=== PATIENT | female | born 1965 | race Caucasian/White ===

== ENCOUNTER 2016-06-01 08:33 | Emergency (ER) | payer OTHER ==
[~2016-06-01] VITALS: Ht 162.6 cm; Wt 145.4 kg
[2016-06-01 08:44] VITALS: BP 144/91; PULSE 83; RESP 11; O2SAT 96
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
--- NOTE | 2016-06-01 09:05 | DRSVH ---
PROCEDURE: X-RAY CHEST ONE VIEW, PORTABLE ([id number]) INDICATIONS: CHEST PAIN TECHNIQUE: One view of the chest was acquired. COMPARISON: None. FINDINGS: Surgical changes and devices: None. Lungs and pleura: No pleural effusions or pneumothorax. Lungs are clear. Mediastinum: Mediastinal contours appear normal. Heart size is normal. Bones and chest wall: No suspicious bony lesions. Overlying soft tissues appear unremarkable. IMPRESSION: No acute cardiopulmonary disease. Dictated by: James Brooks [facility] Interpreted: Rylie Hilton MD on 06/01/2016 at 9:04 Transcribed by: YOSSI on 06/01/2016 at 9:05 Approved by: Rylie Hilton MD, PhD on 06/01/2016 at 16:50
[2016-06-01] MEDS ORDERED: Nitroglycerin 2% 1 Gm Ointment TOPICAL SCH (09:30)
[2016-06-01 09:31] LABS: BASOPHILS % (AUTO) 0.3 % (0-3); EOSINOPHILS % (AUTO) 1.2 % (0-5); MONOCYTES % (AUTO) 8.3 % (4-12); Mean Corpuscular Hemoglobin 31.4 pg (27.0-35.0); NEUTROPHILS % (AUTO) 67.5 % (40-74); Platelet Count 238 bil/L (150-400)
[2016-06-01 10:09] LABS: TROPONIN T < 0.010 ug/L (0.0-0.011)
[2016-06-01 10:13] LABS: Magnesium 2.3 mg/dL (1.6-2.6)
[2016-06-01] MEDS ORDERED: CARB15DR74 OP (13:34)
[2016-06-01] MEDS ORDERED: MINE3.5O OP (13:34)
== END 2016-06-01 13:48 | disposition home or self-care (01) ==
LOC: SED 08:33
DX: R07.89 Other chest pain (principal); E11.9 Type 2 diabetes mellitus without complications; I10 Essential (primary) hypertension; F17.200 Nicotine dependence, unspecified, uncomplicated